=== PATIENT | male | born 1960 | race Caucasian/White ===

== ENCOUNTER → 2016-11-23 | Outpatient (CLI) | payer OTHER ==
[~2016-11-23] MED LIST: HYDR0.5T PO; VANC1INJ10 IV; [UNRECOGNIZED DRUG - CODE] PO
[2016-11-23 12:58] LABS: BASO % 0.2 %; BASO ABS # 0.01 K/uL (0-0.2); COMPLETE YES; EOS % 1.7 %; HEMATOCRIT 48.1 % (42-52); IG% 0.2 %; LYMPH % 17.1 %; LYMPH ABS # 1.02 K/uL (1.2-3.4); MEAN CELL VOLUME 91.4 fL (80-100); MEAN CORPUSCULAR HEMOGLOBIN 30.2 pg (25-34); MEAN CORPUSCULAR HGB CONC 33.1 g/dl (32-36); MEAN PLATELET VOLUME 9.9 fL (7.4-10.4); MONO % 6.9 %; NEUT % 73.9 %; PLATELET COUNT 230 K/uL (130-400); RED BLOOD COUNT 5.26 M/uL (4.7-6.1); WHITE BLOOD COUNT 5.98 K/uL (4.8-10.8)
[2016-11-23 13:07] LABS: ALT/SGPT 46 U/L (12-78); CREATININE 0.94 mg/dl (0.60-1.40)
[2016-11-23 13:10] LABS: ALKALINE PHOSPHATASE 44 U/L (45-117); AST/SGOT 28 U/L (15-37); RHEUMATOID FACTOR < 10.0 U/mL (0-15); TOTAL IRON BINDING CAPACITY 245 mcg/dl (250-450)
== END | disposition home or self-care (01) ==
LOC: C.LABBC 11:13
PROVIDERS: ATTEND Internal Medicine Rheumatology
DX: Q79.6 Ehlers-Danlos syndromes (principal); M06.9 Rheumatoid arthritis, unspecified; Z79.899 Other long term (current) drug therapy; G56.02 Carpal tunnel syndrome, left upper limb

== ENCOUNTER → 2016-11-27 | Outpatient (CLI) | payer OTHER ==
--- NOTE | 2016-11-27 09:44 | DIAGNOSTIC IMAGING REPORT ---
LEFT WRIST 4 VIEWS CLINICAL HISTORY: Left wrist pain and numbness. FINDINGS: 4 views of left wrist are obtained. No prior studies are available for comparison at the time of dictation. The skeletal structures appear well mineralized. No fracture is seen. There is moderate arthritic change at the first carpometacarpal joint with bony sclerosis, overgrowth, and mild subluxation. Only mild arthritic change is seen at the second carpometacarpal joint. The remaining joint spaces of the wrist appear preserved. No erosive change is seen. The overlying soft tissues are within normal limits. IMPRESSION: 1. No acute bony abnormality is identified in the left wrist. 2. Moderate arthritic change is noted at the first carpometacarpal articulation. Electronically signed by: Fan Uriarte M.D. 11/27/2016 9:43 AM Dictated Date/Time: 11/27/2016 9:41 AM
--- NOTE | 2016-11-27 10:24 | DIAGNOSTIC IMAGING REPORT ---
LEFT HAND 3 VIEWS HISTORY: Left hand pain. Carpal tunnel syndrome COMPARISON: None. FINDINGS: There is no fracture or dislocation. Mild soft tissue swelling at the PIP joints of the second through fourth digits. Severe osteoarthritis at the first carpometacarpal joint. No erosions identified. No radiopaque foreign bodies. IMPRESSION: 1. No fractures. 2. Severe osteoarthritis at the first carpometacarpal joint. 3. Mild soft tissue swelling at the PIP joints of the second through fourth digits. Electronically signed by: Jaguar Vidal M.D. 11/27/2016 10:23 AM Dictated Date/Time: 11/27/2016 10:19 AM
== END | disposition home or self-care (01) ==
LOC: C.RADBC 09:00
PROVIDERS: ATTEND Internal Medicine Rheumatology
DX: G56.02 Carpal tunnel syndrome, left upper limb (principal); M06.9 Rheumatoid arthritis, unspecified; Q79.6 Ehlers-Danlos syndromes; Z79.899 Other long term (current) drug therapy

== ENCOUNTER → 2017-05-16 | Outpatient (CLI) | payer OTHER ==
[2017-05-16 10:39] LABS: BASO % 0.2 %; BASO ABS # 0.01 K/uL (0-0.2); COMPLETE YES; EOS % 3.4 %; HEMATOCRIT 46.3 % (42-52); IG% 0.2 %; LYMPH % 26.5 %; LYMPH ABS # 1.23 K/uL (1.2-3.4); MEAN CORPUSCULAR HEMOGLOBIN 32.2 pg (25-34); MEAN CORPUSCULAR HGB CONC 35.4 g/dl (32-36); MEAN PLATELET VOLUME 9.6 fL (7.4-10.4); MONO % 6.9 %; NEUT % 62.8 %; PLATELET COUNT 191 K/uL (130-400); RED BLOOD COUNT 5.09 M/uL (4.7-6.1); WHITE BLOOD COUNT 4.65 K/uL (4.8-10.8)
== END | disposition home or self-care (01) ==
LOC: C.LAB1850 09:45
PROVIDERS: ATTEND Internal Medicine Rheumatology
DX: M06.9 Rheumatoid arthritis, unspecified (principal); Z79.899 Other long term (current) drug therapy; R21 Rash and other nonspecific skin eruption

== ENCOUNTER → 2017-05-19 | Outpatient (CLI) | payer OTHER ==
--- NOTE | 2017-05-19 16:16 | DIAGNOSTIC IMAGING REPORT ---
L FOOT MIN 3 VIEWS ROUTINE CLINICAL HISTORY: FOOT PAIN pain COMPARISON: None. DISCUSSION: Nondisplaced oblique fracture distal aspect fourth metatarsal. Clavicle linear nondisplaced fracture distal shaft third metatarsal. Early. She reaction distal aspect fourth metatarsal. Alignment is anatomic. Mild soft tissue edema. IMPRESSION: Nondisplaced cortical fractures distal aspect third and fourth metatarsal. Early periosteal reaction distal fourth metatarsal fracture indicative of early healing. Mild soft tissue edema.. The above report was generated using voice recognition software. It may contain grammatical, syntax or spelling errors. Electronically signed by: Rashid Gross M.D. 05/19/2017 4:15 PM Dictated Date/Time: 05/19/2017 4:12 PM
== END | disposition home or self-care (01) ==
LOC: C.RADBC 15:24
PROVIDERS: ATTEND Physician Assistant
DX: S92.335D Nondisplaced fracture of third metatarsal bone, left foot, subsequent encounter for fracture with routine healing (principal); S92.345D Nondisplaced fracture of fourth metatarsal bone, left foot, subsequent encounter for fracture with routine healing; X58.XXXD Exposure to other specified factors, subsequent encounter